=== PATIENT | female | born 1985 | race Caucasian/White ===

== ENCOUNTER 2018-08-19 21:09 | Emergency (ER) | payer SELFPAY ==
[2018-08-19] MEDS ORDERED: Morphine 10 MG/ML VIAL ONE (22:35)
[2018-08-19] MEDS ORDERED: methylPREDNISolone Sod Succ/PF 125 MG/2 ML VIAL ONE (22:36)
[2018-08-19] MEDS ORDERED: Sterile Water 10 ML ONE (22:37)
== END 2018-08-19 23:08 | disposition home or self-care (01) ==
LOC: MADERS 21:09
DX: M54.5 Low back pain (principal); X50.1XXA Overexertion from prolonged static or awkward postures, initial encounter
CPT/HCPCS: 96372; A4216; J2270; J2930

== ENCOUNTER 2021-01-10 14:45 | Emergency (ER) | payer SELFPAY ==
[2021-01-10] MEDS ORDERED: diphenhydrAMINE 50 MG/ML VIAL ONE (15:23)
[2021-01-10] MEDS ORDERED: Amoxicillin/Potassium Clav 875 MG TAB ONE (15:23)
[2021-01-10] MEDS ORDERED: Prochlorperazine 10 MG/2 ML VIAL ONE (15:23)
[2021-01-10] MEDS ORDERED: Ketorolac Tromethamine 30 MG/ML VIAL ONE (15:23)
== END 2021-01-10 15:35 | disposition home or self-care (01) ==
LOC: MADERS 14:45
DX: J01.90 Acute sinusitis, unspecified (principal); B96.89 Other specified bacterial agents as the cause of diseases classified elsewhere
CPT/HCPCS: 96372; 99283; J0780; J1200; J1885

== ENCOUNTER 2021-11-21 20:02 | Emergency (ER) | payer BC, SELFPAY ==
[2021-11-21] MEDS ORDERED: Boostrix 0.5 ML (Tdap) VIAL ONE (20:18)
[2021-11-21] MEDS ORDERED: Lidocaine 1% w/Epinephrine 1:100K 20 ML VIAL ONE (21:02)
[2021-11-21] MEDS ORDERED: Lidocaine 1% PF 5 ML VIAL ONE (21:03)
[2021-11-21] MEDS ORDERED: Triple Antibiotic Oint 1 GM Packet ONE (21:04)
[2021-11-21] MEDS ORDERED: Cephalexin 500 MG CAP ONE (21:18)
== END 2021-11-21 21:26 | disposition home or self-care (01) ==
LOC: MADERS 20:02
DX: S61.011A Laceration without foreign body of right thumb without damage to nail, initial encounter (principal); X58.XXXA Exposure to other specified factors, initial encounter
CPT/HCPCS: 12001; 90471; 90715